=== PATIENT | female | born 1995 | race Caucasian/White ===

== ENCOUNTER → 2021-09-18 12:20 | Outpatient (CLI) | payer OTHER, SELFPAY ==
--- NOTE | ~2021-09-18 | XR_ITS ---
EXAMINATION: XR chest 2V 09/18/2021 12:34 INDICATION: Cough. 16 weeks . PROCEDURE: PA and lateral views of the chest COMPARISON: 07/10/2011 FINDINGS: The lungs are clear. The cardiomediastinal silhouette is within normal limits. There are no pleural effusions. There is no pneumothorax suspected. IMPRESSION: 1: NO ACUTE CARDIOPULMONARY DISEASE. Reviewed, dictated and finalized at location B. T [employer]
== END ==
PROVIDERS: PCP Obstetrics & Gynecology; Visit Provider Obstetrics & Gynecology
DX: R05.9 Cough, unspecified (principal); Z86.16 Personal history of COVID-19; Z3A.16 16 weeks gestation of pregnancy
CPT/HCPCS: 71046

== ENCOUNTER 2021-10-31 10:45 | Outpatient (RCR) | payer OTHER, SELFPAY ==
[2021-10-31 11:36] VITALS: BP 128/72; PULSE 102
--- NOTE | 2021-10-31 11:39 | PC.NURSE ---
Pt here for decreased movement, discussed gestational age. Pt has not had anything to eat and minimal to drink today, states she was stressed. Discussed importance of fluids and eating, especially with diabetes.
== END 2022-01-29 23:59 | disposition home or self-care (01) ==
LOC: ANHOBOP 10:45
PROVIDERS: PCP Family Medicine; Visit Provider Obstetrics & Gynecology
DX: O36.8120 Decreased fetal movements, second trimester, not applicable or unspecified (principal); Z3A.22 22 weeks gestation of pregnancy
CPT/HCPCS: 59025

== ENCOUNTER 2021-12-03 16:37 | Outpatient (CLI) | payer OTHER, SELFPAY ==
[2021-12-03 17:21] VITALS: BP 121/59; PULSE 106
[2021-12-03 17:30] VITALS: BP 120/63; PULSE 108
[2021-12-03 17:34] LABS: Basophils Percent Auto 0.2 % (0.2-1.2); Eosinophils Absolute Auto 0.1 K/mm3 (0-0.3); Eosinophils Percent Auto 0.8 % (0-4.4); Hematocrit 31.6 % (37.0-47.0); Hemoglobin 9.9 g/dL (12.0-15.0); Immature Granulocyte Absolute 0.08 K/mm3 (0.00-0.031); Immature Granulocyte Percent A 0.6 % (0-0.5); Lymphocytes Absolute Auto 3.01 K/mm3 (0.9-3.2); Lymphocytes Percent Auto 21.4 % (18.3-44.2); Mean Corpuscular HGB Conc 31.3 g/dl (32-36); Mean Corpuscular Hemoglobin 27.3 pg (26-34); Mean Corpuscular Volume 87.1 fl (80-100); Mean Platelet Volume 9.7 fl (7.4-10.4); Monocytes Absolute Auto 0.6 K/mm3 (0.1-0.6); Monocytes Percent Auto 4.3 % (2.6-8.5); Neutrophils Absolute Auto 10.2 K/mm3 (1.3-6.7); Neutrophils Percent Auto 72.7 % (45.5-73.1); Platelet Count Result 376 k/mm3 (150-375); Red Blood Count 3.63 M/mm3 (4.2-5.4); Red Cell Distribution Width 16.2 % (11.5-14.5)
[2021-12-03 17:40] VITALS: BMI 56.1
[2021-12-03 17:43] LABS: Appearance Urine Slightly Cloudy (Clear); Bilirubin Urine Negative (Negative); Blood Urine Negative (Negative); Color Urine Yellow (Yellow); Glucose Urine UA Negative (Negative); Ketones Urine Trace mg/dL (Negative); Leukocyte Esterase Ur Negative LEU/UL (NEGATIVE); Nitrate Urine Negative (Negative); Protein Urine Negative (Negative); Specific Grav Ur 1.025 (1.001-1.035); Urobilinogen Urine 0.2 mg/dL (<2.0); pH Urine 5.5 (5.0-9.0)
[2021-12-03 17:44] LABS: Alanine Aminotransferase 12 U/L (6-35); Albumin Level 3.8 g/dL (3.5-5.1); Alkaline Phosphatase 77 U/L (38-126); Anion Gap 8 mmol/L (8-16); Aspartate Amino Transferase 18 U/L (14-36); Bilirubin,Total 0.3 mg/dL (0.2-1.3); Blood Urea Nitrogen 6 mg/dL (7-17); Calcium 8.3 mg/dL (8.4-10.2); Carbon Dioxide 25 mmol/L (22-30); Chloride 102 mmol/L (98-107); Estimated CRCL calculation 212 ml/min; Estimated Glomerular Filt Rate > 60; Glucose 88 mg/dL (65-110); Potassium 3.8 mmol/L (3.4-5.0); Sodium 135 mmol/L (137-145); Uric Acid 4.9 mg/dL (2.5-7.5)
[2021-12-03 17:45] VITALS: BP 122/62; PULSE 101
[2021-12-03 17:46] LABS: Add Urine Microscopic? NO
[2021-12-03 17:51] VITALS: BP 121/59; PULSE 114
[2021-12-03 18:00] VITALS: BP 125/65; PULSE 102
[2021-12-03 18:05] VITALS: BP 121/59; PULSE 114
--- NOTE | 2021-12-03 18:57 | PC.NURSE ---
[id number]- Dr. Perez paged through answering service
--- NOTE | 2021-12-03 19:00 | PC.NURSE ---
Dr. Perez responded to page. labs reviewed. vitals reveiwed. orders received to d/c pt with instructions to keep appt in office.
[2021-12-03 19:16] LABS: Creatinine Urine 174.9 mg/dL
[2021-12-03 19:46] LABS: Total Protein Urine Random < 5 mg/dL; Ur Ttl Prot Creatinine Ratio < 0.03 mg/mg (0-0.20)
== END 2021-12-03 19:03 | disposition home or self-care (01) ==
LOC: ANHOBOP 16:41 → ANHOBPP 16:41
PROVIDERS: Obstetrics & Gynecology; PCP Family Medicine; Visit Provider Obstetrics & Gynecology
DX: O13.9 Gestational [pregnancy-induced] hypertension without significant proteinuria, unspecified trimester (principal); Z3A.00 Weeks of gestation of pregnancy not specified
CPT/HCPCS: 36415; 59025; 80053; 81003; 82570; 84156; 84550; 85025; 87086; 99199

== ENCOUNTER 2021-12-13 13:24 | Outpatient (RCR) | payer OTHER, SELFPAY ==
[2021-12-13 14:19] VITALS: BP 124/55; PULSE 109
== END 2022-03-13 23:59 | disposition home or self-care (01) ==
LOC: ANHOBOP 13:24
PROVIDERS: PCP Family Medicine; Visit Provider Obstetrics & Gynecology
DX: O36.8130 Decreased fetal movements, third trimester, not applicable or unspecified (principal); Z3A.28 28 weeks gestation of pregnancy
CPT/HCPCS: 59025

== ENCOUNTER 2022-01-29 11:53 | Observation (INO) | payer OTHER, SELFPAY ==
[2022-01-29] VITALS (18 sets, daily range): BP systolic 151–171; BP diastolic 81–104; PULSE 86–103; TEMP 36.1–36.6; O2SAT 96–98; BMI 62.4
--- NOTE | ~2022-01-29 | US_ITS ---
EXAMINATION: US OB follow up w BPP DATE: 01/29/2022 13:47 INDICATION: Gestational diabetes and hypertension during third trimester TECHNIQUE: Real-time pelvic ultrasound was performed. The interpreting radiologist was not present fo r the study. COMPARISON: None. FINDINGS: There is a single living fetus in transverse lie. The placenta is anterior. heart rate is 146 b eats per minute (bpm). The amniotic fluid index is 20.9 cm which is normal (normal range: 7.9 cm to 2 4.9 cm). Biophysical profile performed by the technologist: breathing (30 sec sustained breathing in 30 minutes): 2 out of 2 movement (3 gross body movements in 30 minutes): 2 out of 2 tone (one episode of recevys-sewazcxjv-wlpetvg limb movement): 2 out of 2 Amniotic fluid pocket (2 cm): 2 out of 2 Total score: 8 out of 8 The following biometric data were obtained: Biparietal diameter (BPD): 9.0 cm; head circumference (HC): 32.3 cm; abdominal circumference (AC): 39 .9 cm; femur length (FL): 7.8 cm. The head circumference to abdominal circumference ratio and femoral length to abdominal circumference ratio greater than two standard deviations below the mean. Estimated weight is 4346 g +/- 651 g, which correlates with the greater than 97th percentile wh en 03/03/2022 is used as estimated date of delivery. As single measurements, these parameters are each equal to the following estimated gestational ages w ith ranges of +/- 2 standard deviations: BPD: 36 weeks 4 days +/- 3 weeks 1 days. HC: 37 weeks 2 days +/- 2 weeks 5 days. AC: OOR FL: 40 weeks 0 days +/- 3 weeks 1 days. estimated gestational age based solely on measurements from this exam is 38 weeks 0 days +/- 2 weeks 5 days. IMPRESSION: 1. Single living fetus in transverse lie. 2. Biophysical profile 8 out of 8. 3. Estimated weight is 4346 g +/- 651 g, which correlates with the greater than 97th percentile when 03/03/2022 is used as estimated date of delivery. 4. Normal amniotic fluid index. 5. Head circumference to abdominal circumference ratio and femoral length to abdominal circumference ratio greater than two standard deviations below the mean Reviewed, dictated and finalized at location B. IMPRESSION: 1. Single living fetus in transverse lie. 2. Biophysical profile 8 out of 8. 3. Estimated weight is 4346 g +/- 651 g, which correlates with the [facility] r than 97th percentile when 03/03/2022 is used as estimated date of delivery. 4. Normal amniotic fluid index. 5. Head circumference to abdominal circumference ratio and femoral length to ab dominal circumference ratio greater than two standard deviations below the mean
--- NOTE | 2022-01-29 12:00 | PC.NURSE ---
To OB department from Dr. Craft office. Pt has hx of gestational diabetes and elevated blood pressures. Pt was seen office today and pts blood pressure remained high. Pt stated at the office that she just wanted to . On arrival to OB pt states I just want and I am done with this. Pt states she does not want to have baby tonight. States she has tremendous stress related to buying a new house which has had lots of problems. States she has been unable to shower for a week. Also concerned she has a yeast infection.
[2022-01-29 13:26] LABS: Basophils Percent Auto 0.2 % (0.2-1.2); Eosinophils Absolute Auto 0.1 K/mm3 (0-0.3); Eosinophils Percent Auto 0.8 % (0-4.4); Hematocrit 31.2 % (37.0-47.0); Immature Granulocyte Absolute 0.03 K/mm3 (0.00-0.031); Immature Granulocyte Percent A 0.3 % (0-0.5); Lymphocytes Absolute Auto 2.07 K/mm3 (0.9-3.2); Lymphocytes Percent Auto 22.5 % (18.3-44.2); Mean Corpuscular HGB Conc 32.1 g/dl (32-36); Mean Corpuscular Hemoglobin 26.2 pg (26-34); Mean Corpuscular Volume 81.7 fl (80-100); Mean Platelet Volume 10.9 fl (7.4-10.4); Monocytes Absolute Auto 0.5 K/mm3 (0.1-0.6); Monocytes Percent Auto 5.2 % (2.6-8.5); Neutrophils Absolute Auto 6.6 K/mm3 (1.3-6.7); Platelet Count Result 268 k/mm3 (150-375); Red Blood Count 3.82 M/mm3 (4.2-5.4); Red Cell Distribution Width 16.3 % (11.5-14.5); White Blood Count 9.2 K/mm3 (4.5-10.0)
[2022-01-29 13:39] LABS: Alanine Aminotransferase 13 U/L (6-35); Albumin Level 3.1 g/dL (3.5-5.1); Alkaline Phosphatase 100 U/L (38-126); Anion Gap 1 mmol/L (8-16); Aspartate Amino Transferase 18 U/L (14-36); Bilirubin,Total 0.3 mg/dL (0.2-1.3); Blood Urea Nitrogen 9 mg/dL (7-17); Calcium 7.9 mg/dL (8.4-10.2); Carbon Dioxide 27 mmol/L (22-30); Chloride 105 mmol/L (98-107); Estimated Glomerular Filt Rate > 60; Glucose 102 mg/dL (65-110); Potassium 3.8 mmol/L (3.4-5.0); Sodium 133 mmol/L (137-145); Uric Acid 6.9 mg/dL (2.5-7.5)
[2022-01-29 15:01] LABS: Creatinine Urine 98.5 mg/dL
[2022-01-29 15:06] LABS: Appearance Urine Slightly Cloudy (Clear); Bilirubin Urine Negative (Negative); Color Urine Yellow (Yellow); Glucose Urine UA Negative (Negative); Ketones Urine Negative (Negative); Leukocyte Esterase Ur Negative LEU/UL (NEGATIVE); Nitrate Urine Negative (Negative); Protein Urine 3+ mg/dL (Negative); Specific Grav Ur >= 1.030 (1.001-1.035); Urobilinogen Urine 0.2 mg/dL (<2.0)
[2022-01-29 15:12] LABS: Total Protein Urine Random 474 mg/dL; Ur Ttl Prot Creatinine Ratio 4.81 mg/mg (0-0.20)
[2022-01-29 15:15] LABS: Add Urine Microscopic? YES; Bacteria Urine Trace /hpf; Blood Urine Trace-Intact (Negative); RBC Urine 0-2 /hpf (0-2); Squamous Epithelial Cell Urine Many /hpf (Few)
--- NOTE | 2022-01-29 15:27 | PC.NURSE ---
Update to regarding labs. Dr Craft to call [facility] regarding transfer.
--- NOTE | 2022-01-29 16:10 | PC.NURSE ---
Dr. Craft spoke with [facility] Dr. Michael Valencia who accepts pt in transfer at [address]. Report given to Annie at [facility] transport team. Orders for Magnesium per Dr. Craft.
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
[2022-01-29] MEDS: NIFEdipine 30 MG TAB.ER.24 PO (16:37)
[2022-01-29] MEDS: LACTATED RINGERS 1,000 ML 75 ML IV CONT (17:01)
[2022-01-29] MEDS: MAGNESIUM SULF 4 GM/WATER100ML 4 GM/100 ML BAG IVPB (17:04)
--- NOTE | 2022-01-29 17:04 | PC.NURSE ---
IV initiated and Mag Started per order. Pt states she is having some cramping. Abdomen soft. Pt tearful regarding transfer.
[2022-01-29] MEDS: MAGNESIUM SULF 20GM/WATER500ML 500 ML 50 MG IV CONT (17:30)
--- NOTE | 2022-01-29 17:37 | PC.NURSE ---
Transport team here from [facility]. Labetolol given per transport team. Magnesium infusing without difficulty.
--- NOTE | 2022-01-29 18:00 | PC.NURSE ---
To [facility] per transport team. Grandmother and boyfriend to follow.
[2022-01-29 18:43] LABS: Glucose Point of Care 96 mg/dl (65-105)
--- NOTE | 2022-02-02 07:03 | P.TS_ITS ---
Transfer Discharge Sum: Prov Provider Date of admission: 01/29/22 11:53 Primary care physician: Karrie King, Admitting clinician: Eliane Craft MD Attending physician on discharge: Eliane Craft. Anticipated date of transfer: 01/29/22 DS: Admitting Diagnosis Discharge Date 01/29/22 Admitting Diagnosis pre-eclamspia with severe features Uncontrolled DM Suicidal ideation Obesity DS: Discharge Diagnosis Discharge Diagnosis Plan Pre-eclamspia with severe features Uncontrolled DM Suicidal ideation Obesity Transverse lie Transfer Discharge Sum: Med Medications Active and Home Medications: Home Medications aspirin 81 mg tablet,delayed release 81 mg PO DAILY #90 tabs 08/04/21 [Rx Confirmed 12/03/21] docusate sodium 100 mg capsule (Colace) 100 mg PO BID #180 caps 08/04/21 [Rx Confirmed 12/03/21] omeprazole 20 mg tablet,delayed release 20 mg PO DAILY 09/16/21 [History Confirmed 12/03/21] albuterol sulfate 90 mcg/actuation aerosol inhaler 2 inh inhalation Q4H PRN shortness of breath or wheezing #8.5 grams 10/03/21 [Rx Confirmed 12/03/21] ondansetron 4 mg disintegrating tablet 4 mg PO Q8H #30 tabs 01/05/22 [Rx] fluconazole 150 mg tablet 150 mg PO Q72H #2 tabs 01/29/22 [Rx Confirmed 01/29/22] Transfer Discharge Sum: Hosp Hospital Course Hospital course: Analisa Robledo is a 26 year old female @ 35.2wks (HUMBERTO 07[birth year]) who presented to clinic today very upset with severe range blood pressures. She had not been seen since 24wks and reports a lot of stressors at home; is upset and crying. She was found to have a BP of 160/100. She denied any symptoms of PEC. She was sent to L&D for blood work and urgent assessment. She continued to have intermittent severe range blood pressures; had not required any anti- hypertensives. Her blood/urine work was noted to have normal labs except a P/C ratio of 4.2. She has also continued to endorse SI, stating she hope she dies from a stroke as she no longer wants to be here and would be better off . The fetus is also measuring LGA at ~4400 grams and transverse, but otherwise reassuring tracing w/ BPP 03/02. MFM was consulted who recommended magnesium bolus, nifedipine, and to forgo steroids. She was accepted as a transfer for delivery. Time Spent with Patient Time attestation: Total time spent providing and/or coordinating transfer services: Exam Const: General: acute distress moderate Nutritional Appearance: obese morbidly obese Resp: Effort & Inspection: normal respiratory effort Cardio: Rate: regular rate GI: GI Palp: Yes Soft to palpation and No Tenderness to palpation present (GI) : Other: reassuring heart tones no contractions Skin: General skin exam: normal color Neuro: General: patient oriented x3 Extrem: General: normal to inspection Psych: Appearance: disheveled Affect: Anxious affect present and Irritable affect present
== END 2022-01-29 18:00 | disposition short-term general hospital (02) ==
LOC: ANHOBPP 12:00
PROVIDERS: Admitting Provider Obstetrics & Gynecology; PCP Family Medicine; Visit Provider Obstetrics & Gynecology
DX: O14.93 Unspecified pre-eclampsia, third trimester (principal); O24.419 Gestational diabetes mellitus in pregnancy, unspecified control; Z3A.35 35 weeks gestation of pregnancy; O99.343 Other mental disorders complicating pregnancy, third trimester; R45.851 Suicidal ideations; F32.A Depression, unspecified; O99.613 Diseases of the digestive system complicating pregnancy, third trimester; R12 Heartburn; O99.513 Diseases of the respiratory system complicating pregnancy, third trimester; J45.909 Unspecified asthma, uncomplicated; O99.333 Smoking (tobacco) complicating pregnancy, third trimester; F17.290 Nicotine dependence, other tobacco product, uncomplicated; O99.323 Drug use complicating pregnancy, third trimester; F12.980 Cannabis use, unspecified with anxiety disorder; Z86.16 Personal history of COVID-19; O99.213 Obesity complicating pregnancy, third trimester; E66.01 Morbid (severe) obesity due to excess calories; Z79.51 Long term (current) use of inhaled steroids; Z79.899 Other long term (current) drug therapy; Z79.82 Long term (current) use of aspirin
CPT/HCPCS: 36415; 59025; 76816; 76819; 80053; 81001; 82570; 82948; 84156; 84550; 85025; 87086; 96374; A9270; G0378; G0379; J3475; J7120